=== PATIENT | female | born 1990 | race Caucasian/White ===

== ENCOUNTER 2024-01-31 23:39 | Emergency (ER) | payer BC ==
[~2024-01-31] VITALS: Ht 167.6 cm; Wt 107.0 kg
[2024-01-31 23:44] VITALS: O2SAT 98
[2024-02-01] MEDS: LIDOCAINE 5% PATCH TOP SCH (02:18)
[2024-02-01] MEDS: ACETAMINOPHEN 325MG TABLET PO ONE (02:19)
[2024-02-01] MEDS: CYCLOBENZAPRINE 10MG TABLET PO ONE (02:19)
[2024-02-01 03:23] LABS: CLARITY URINE CLOUDY (CLEAR); COLOR URINE YELLOW (YELLOW); GLUCOSE URINE NEGATIVE (NEGATIVE); KETONES URINE NEGATIVE (NEGATIVE); LEUKOCYTE ESTERASE URINE TRACE (NEGATIVE); NITRITE URINE NEGATIVE (NEGATIVE); OCCULT BLOOD URINE NEGATIVE (NEGATIVE); PH URINE 6.5 (4.5-8.0); PROTEIN URINE NEGATIVE (NEGATIVE); UROBILINOGEN URINE 0.2 E.U./dL (0.2-1.0)
[2024-02-01] MEDS ORDERED: CYCL10TA21 MT (04:17)
[2024-02-01] MEDS ORDERED: NAPR220C61 MT (04:17)
[2024-02-01 05:10] LABS: SQUAMOUS EPITHELIAL CELL URINE 1+ /lpf (RARE/1+)
[2024-02-01 05:12] LABS: RBC URINE 0-2 /hpf (0-2); WBC URINE 0-2 /hpf (0-2)
[2024-02-01 05:13] LABS: BACTERIA URINE TRACE
[2024-02-01 05:18] VITALS: BP 137/90; PULSE 75; RESP 14; TEMP 37.00296; O2SAT 98
== END 2024-02-01 05:25 | disposition home or self-care (01) ==
LOC: ER 23:39
DX: M54.50 Low back pain, unspecified (principal)
CPT/HCPCS: 81003; 81025; 99285